=== PATIENT | female | born 1950 | race Caucasian/White ===

== ENCOUNTER → 2016-10-23 10:40 | Outpatient (CLI) | payer MEDICARE, SELFPAY ==
[2016-05-02 10:25] VITALS: BP 111/11; BP 222/22; PULSE 22
== END ==
PROVIDERS: PCP Family Medicine; Visit Provider Family Medicine
DX: R69 Illness, unspecified (principal)

== ENCOUNTER 2019-06-03 10:35 | Emergency (ER) | payer MEDICARE, SELFPAY ==
[2016-05-02 10:25] VITALS: BP 111/11; BP 222/22; PULSE 22
== END 2019-06-03 11:22 ==
LOC: ER 10:41
DX: R69 Illness, unspecified (principal)

== ENCOUNTER 2019-06-09 15:19 | Emergency (ER) | payer MEDICARE, SELFPAY ==
[2016-05-02 10:25] VITALS: BP 111/11; BP 222/22; PULSE 22
== END 2019-06-09 16:00 ==
LOC: ER 16:33
DX: R69 Illness, unspecified (principal)

== ENCOUNTER 2019-06-11 12:40 | Emergency (ER) | payer MEDICARE, SELFPAY ==
[2016-05-02 10:25] VITALS: BP 111/11; BP 222/22; PULSE 22
== END 2019-06-11 14:41 | disposition home or self-care (01) ==
DX: R69 Illness, unspecified (principal)

== ENCOUNTER 2019-06-25 10:21 | Emergency (ER) | payer MEDICARE, SELFPAY ==
[2016-05-02 10:25] VITALS: BP 111/11; BP 222/22; PULSE 22
== END 2019-06-25 12:39 | disposition home or self-care (01) ==
LOC: ER 10:23
DX: R69 Illness, unspecified (principal)

== ENCOUNTER 2019-06-27 09:42 | Inpatient (IN) | payer MEDICARE, SELFPAY ==
[2016-05-02 10:25] VITALS: BP 111/11; BP 222/22; PULSE 22
--- NOTE | 2019-06-27 10:03 | RT.EKG_ITS ---
APPROVED REPORT <Conclusion> All 12 leads are missing
== END 2019-06-27 11:00 | disposition other institution (70) | DRG 999 ==
LOC: ICU 09:44
CPT/HCPCS: 93005; 93010

== ENCOUNTER 2019-07-08 09:09 | Emergency (ER) | payer MEDICARE, SELFPAY ==
[2016-05-02 10:25] VITALS: BP 111/11; BP 222/22; PULSE 22
--- NOTE | 2019-07-08 09:00 | RT.EKG_ITS ---
APPROVED REPORT test <Conclusion> Sinus rhythm...normal P axis, V-rate 50- 99
--- NOTE | 2019-07-30 | RT.EKG_ITS ---
APPROVED REPORT Exam: Resting ECG HR:0 bpm ECG Measurements Heart Rate 0 AXES CA [id number] P 0 QRSd [id number] QRS 0 QT [id number] T [id number] QTc 0 <Conclusion> All 12 leads are missing Normal Electrocardiogram
== END 2019-07-08 10:50 | disposition home or self-care (01) ==
LOC: ER 09:23
DX: R69 Illness, unspecified (principal)
CPT/HCPCS: 83735; 84484; 93005; 93010

== ENCOUNTER 2019-07-16 14:21 | Emergency (ER) | payer MEDICARE, SELFPAY ==
[2016-05-02 10:25] VITALS: BP 111/11; BP 222/22; PULSE 22
== END 2019-07-16 14:41 | disposition home or self-care (01) ==
LOC: ER 14:38
DX: R69 Illness, unspecified (principal)
CPT/HCPCS: 93005; 93010

== ENCOUNTER 2019-08-08 15:09 | Inpatient (IN) | payer MEDICARE, SELFPAY ==
[2016-05-02 10:25] VITALS: BP 111/11; BP 222/22; PULSE 22
== END 2019-08-11 07:47 | disposition home or self-care (01) | DRG 951 ==
LOC: RICU 15:11
DX: R69 Illness, unspecified (principal)

== ENCOUNTER 2019-08-28 12:49 | Emergency (ER) | payer MEDICARE, SELFPAY ==
[2016-05-02 10:25] VITALS: BP 111/11; BP 222/22; PULSE 22
== END 2019-08-28 13:20 ==
DX: R69 Illness, unspecified (principal)

== ENCOUNTER 2019-09-17 13:53 | Emergency (ER) | payer MEDICARE, SELFPAY ==
[2016-05-02 10:25] VITALS: BP 111/11; BP 222/22; PULSE 22
--- NOTE | 2019-09-17 | RT.EKG_ITS ---
APPROVED REPORT Exam: Resting ECG HR:63 bpm ECG Measurements Heart Rate 63 AXES CO 166 P 26 QRSd 84 QRS 11 QT 390 T 45 QTc 400 <Conclusion> Sinus rhythm...normal P axis, V-rate 50- 99 ST elevation, consider inferior injury...ST >0.08mV, II III aVF Nonspecific ST-T changes
== END 2019-09-17 15:28 ==
DX: R69 Illness, unspecified (principal)
CPT/HCPCS: 93005; 93010

== ENCOUNTER 2019-09-23 13:51 | Emergency (ER) | payer MEDICARE, SELFPAY ==
[2016-05-02 10:25] VITALS: BP 111/11; BP 222/22; PULSE 22
== END 2019-09-23 15:39 | disposition home or self-care (01) ==
LOC: ER 13:53
DX: R69 Illness, unspecified (principal)

== ENCOUNTER → 2019-10-22 12:40 | Outpatient (CLI) | payer MEDICARE, SELFPAY ==
[2016-05-02 10:25] VITALS: BP 111/11; BP 222/22; PULSE 22
--- NOTE | 2019-10-22 12:30 | RT.EKG_ITS ---
APPROVED REPORT Exam: Resting ECG HR:79 bpm ECG Measurements Heart Rate 79 AXES VA 121 P 65 QRSd 93 QRS 62 QT 401 T 38 QTc 460 <Conclusion> Sinus rhythm...normal P axis, V-rate 50- 99 Low voltage, precordial leads...precordial leads <1.0mV The ED physician agrees with the ECG cart interpretation.
== END ==
PROVIDERS: Visit Provider Internal Medicine Cardiovascular Disease
DX: R69 Illness, unspecified (principal)
CPT/HCPCS: 93005; 93010

== ENCOUNTER 2019-10-30 09:42 | Outpatient (RCR) | payer MEDICARE, SELFPAY ==
[2016-05-02 10:25] VITALS: BP 111/11; BP 222/22; PULSE 22
== END 2019-10-30 09:47 ==
LOC: CR 09:42
DX: R69 Illness, unspecified (principal)

== ENCOUNTER 2019-11-17 11:40 | Emergency (ER) | payer MEDICARE, SELFPAY ==
[2016-05-02 10:25] VITALS: BP 111/11; BP 222/22; PULSE 22
== END 2019-11-17 11:45 | disposition other institution (70) ==
LOC: ER 11:42
DX: R69 Illness, unspecified (principal)
CPT/HCPCS: 93005; 93010

== ENCOUNTER 2019-11-17 11:46 | Emergency (ER) | payer MEDICARE, SELFPAY ==
[2016-05-02 10:25] VITALS: BP 111/11; BP 222/22; PULSE 22
== END 2019-11-17 13:29 | disposition other institution (70) ==
LOC: ER 12:04
PROVIDERS: Emergency Provider Student in an Organized Health Care Education/Training Program
DX: R69 Illness, unspecified (principal)
CPT/HCPCS: 93005; 93010

== ENCOUNTER 2019-11-19 14:54 | Emergency (ER) | payer MEDICARE, SELFPAY ==
[2016-05-02 10:25] VITALS: BP 111/11; BP 222/22; PULSE 22
== END 2019-11-19 15:48 ==
LOC: ER 15:47
DX: R69 Illness, unspecified (principal)

== ENCOUNTER 2019-11-25 08:02 | Emergency (ER) | payer MEDICARE, SELFPAY ==
[2016-05-02 10:25] VITALS: BP 111/11; BP 222/22; PULSE 22
--- NOTE | 2019-11-25 08:00 | RT.EKG_ITS ---
APPROVED REPORT <Conclusion> Sinus rhythm...normal P axis, V-rate 60- 99 Aberrant conduction of SV complex(es)...aberrant shape, MA 80-220
[2019-11-25 12:48] VITALS: BP 130/60; PULSE 105; RESP 10; TEMP 37.6; O2SAT 98
--- NOTE | 2019-11-26 15:45 | RT.EKG_ITS ---
APPROVED REPORT Exam: Resting ECG Patient Location: E HR:12 bpm ECG Measurements Heart Rate 12 AXIS ID 8 P 8 QRSd 8 QRS 8 QT 230 T 8 QTc 0 <Conclusion> I have reviewed and interpreted ECG and agree with software generated interpretation.
== END 2019-11-25 13:08 ==
LOC: ER 08:04
DX: R69 Illness, unspecified (principal)
CPT/HCPCS: 93005; 93010

== ENCOUNTER 2019-11-25 14:32 | Emergency (ER) | payer MEDICARE, SELFPAY ==
[2016-05-02 10:25] VITALS: BP 111/11; BP 222/22; PULSE 22
== END 2019-11-25 14:44 ==
LOC: ER 14:34
DX: R69 Illness, unspecified (principal)

== ENCOUNTER → 2019-12-11 13:09 | Outpatient (CLI) | payer MEDICARE, SELFPAY ==
[2016-05-02 10:25] VITALS: BP 111/11; BP 222/22; PULSE 22
== END ==
DX: R69 Illness, unspecified (principal)

== ENCOUNTER 2019-12-11 14:21 | Emergency (ER) | payer MEDICARE, SELFPAY ==
[2016-05-02 10:25] VITALS: BP 111/11; BP 222/22; PULSE 22
== END 2019-12-11 15:51 | disposition home or self-care (01) ==
DX: R69 Illness, unspecified (principal)

== ENCOUNTER 2019-12-11 15:20 | Emergency (ER) | payer MEDICARE, SELFPAY ==
[2016-05-02 10:25] VITALS: BP 111/11; BP 222/22; PULSE 22
== END 2019-12-11 15:50 | disposition home or self-care (01) ==
DX: R69 Illness, unspecified (principal)

== ENCOUNTER 2019-12-12 08:11 | Emergency (ER) | payer MEDICARE, SELFPAY ==
[2016-05-02 10:25] VITALS: BP 111/11; BP 222/22; PULSE 22
== END 2019-12-12 08:30 | disposition home or self-care (01) ==
DX: R69 Illness, unspecified (principal)

== ENCOUNTER 2019-12-15 13:59 | Emergency (ER) | payer MEDICARE, SELFPAY ==
[2016-05-02 10:25] VITALS: BP 111/11; BP 222/22; PULSE 22
== END 2019-12-15 14:50 | disposition home or self-care (01) ==
PROVIDERS: Emergency Provider Student in an Organized Health Care Education/Training Program
DX: R69 Illness, unspecified (principal)

== ENCOUNTER 2019-12-22 07:28 | Emergency (ER) | payer MEDICARE, SELFPAY ==
[2016-05-02 10:25] VITALS: BP 111/11; BP 222/22; PULSE 22
== END 2019-12-22 10:01 | disposition home or self-care (01) ==
DX: R69 Illness, unspecified (principal)

== ENCOUNTER 2019-12-22 12:50 | Emergency (ER) | payer MEDICARE, SELFPAY ==
[2016-05-02 10:25] VITALS: BP 111/11; BP 222/22; PULSE 22
== END 2019-12-22 13:16 | disposition home or self-care (01) ==
LOC: ER 12:53
DX: R69 Illness, unspecified (principal)

== ENCOUNTER 2019-12-24 13:51 | Emergency (ER) | payer MEDICARE, SELFPAY ==
[2016-05-02 10:25] VITALS: BP 111/11; BP 222/22; PULSE 22
== END 2019-12-24 14:28 | disposition home or self-care (01) ==
LOC: ER 13:52
DX: R69 Illness, unspecified (principal); M25.551 Pain in right hip

== ENCOUNTER 2020-03-10 13:02 | Outpatient (RCR) | payer SELFPAY ==
[2016-05-02 10:25] VITALS: BP 111/11; BP 222/22; PULSE 22
--- NOTE | 2020-03-11 | HOLTER_ITS ---
APPROVED REPORT Exam Type: [facility] HOLTER MONITOR APPLICATION Reason for Test: Testing for [place] Order Information Patient Location: O Conclusion Test test
== END 2020-03-15 10:33 ==
LOC: RT 13:02
DX: R69 Illness, unspecified (principal)
CPT/HCPCS: 93225; 93226

== ENCOUNTER 2020-03-15 10:36 | Outpatient (RCR) | payer SELFPAY ==
[2016-05-02 10:25] VITALS: BP 111/11; BP 222/22; PULSE 22
--- NOTE | 2020-03-15 12:45 | HOLTER_ITS ---
APPROVED REPORT Exam Type: [facility] HOLTER MONITOR APPLICATION Reason for Test: heart Patient Location: O Conclusion test for HT ordered date differnt then exam date performed.
== END 2020-03-20 23:59 | disposition home or self-care (01) ==
LOC: RT 10:36
DX: R69 Illness, unspecified (principal)
CPT/HCPCS: 93225; 93226

== ENCOUNTER 2021-11-07 16:47 | Inpatient (IN) | payer MEDICARE, SELFPAY ==
[2016-05-02 10:25] VITALS: BP 111/11; BP 222/22; PULSE 22
== END 2021-11-07 16:50 | disposition home or self-care (01) | DRG 951 ==
LOC: MS 16:50
DX: R69 Illness, unspecified (principal)

== ENCOUNTER 2021-11-09 13:45 | Outpatient (CLI) | payer MEDICARE, SELFPAY ==
[2016-05-02 10:25] VITALS: BP 111/11; BP 222/22; PULSE 22
[2021-11-09 14:09] LABS: HGB 9.2 g/dL (11.2-15.7); MCV 88 fL (80-95)
[2021-11-09 14:10] LABS: Absolute Eosinophil Count 0.05 10^3/uL (0.0-0.7); Absolute Lymphocyte Count 1.14 10^3/uL (1.2-3.4); Absolute Monocyte Count 0.52 10^3/uL (0.1-0.8); Absolute Neutrophil Count 2.18 10^3/uL (1.2-6.7); Platelet Count 252 10^3/uL (130-400)
[2021-11-09 14:11] LABS: Procalcitonin 35.8 ng/mL; Prothrombin Time 45.2 sec (9.3-11.0)
[2021-11-09 14:12] LABS: ALT 50 U/L (14-59); AST 42 U/L (15-37); Alkaline Phosphatase 88 U/L (46-116); BUN 22 mg/dL (7-18); Bilirubin, Total 1.2 mg/dL (0.2-1.0); Chloride 108 mmol/L (98-107); Estimated GFR 54.81 (mL/min/1.73m2); Glucose 85 mg/dL (74-106); Potassium 4.1 mmol/L (3.5-5.1); Sodium 155 mmol/L (136-145); Troponin I < 50 ng/L (<or=60)
[2021-11-09 14:13] LABS: BE (Venous) 2 mmol/L (-2-3); HCO3 (Venous) 30 mmol/L (23-28); O2 Sat (Venous) 22 %; TCO2 (Venous) 25 mmol/L (24-29); pCO2 (Venous) 42 mmHg (41-51); pO2 (Venous) 21 mmHg
[2021-11-09 14:14] LABS: Bilirubin Negative (Negative); Blood Trace (Negative); Clarity Sl Cloudy (Clear); Glucose Negative (Negative); Ketones Trace mg/dL (Negative); Leukocyte Esterase Moderate (Negative); Nitrite Positive (Negative); Urobilinogen 0.2 EU/dL (Up TO 0.2); pH 7.2 (5-8)
[2021-11-09 14:15] LABS: Bacteria Few HPF (Negative); C & S Indicated? Yes; Casts 3-5 Hyaline LPF (Negative); Crystals Negative HPF (Negative); Epithelial Cells Few HPF (Negative); Mucus Negative (Negative)
[2022-02-13 10:42] LABS: Microalb ug/mg Crea 2.3 ug/mg Cr
== END 2021-11-09 13:46 | disposition home or self-care (01) ==
LOC: ER 13:47 → LBO 13:49
DX: Z02.89 Encounter for other administrative examinations (principal); R69 Illness, unspecified
CPT/HCPCS: 80053; 82805; 84145; 86850; 86900; 86901; 81003; 81015; 84484; 85025; 85610; 87086

== ENCOUNTER 2022-08-15 08:09 | Emergency (ER) | payer SELFPAY ==
[2016-05-02 10:25] VITALS: BP 111/11; BP 222/22; PULSE 22
== END 2022-08-15 08:13 | disposition home or self-care (01) ==
LOC: ER 08:12
DX: Z53.21 Procedure and treatment not carried out due to patient leaving prior to being seen by health care provider (principal)